=== PATIENT | male | born 1970 | race Two or more races ===

== ENCOUNTER 2019-02-28 00:47 | Emergency (ER) | payer OTHER ==
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
[2019-02-28] MEDS ORDERED: Acetaminophen/HYDROcodone 325-5 MG Tab PO ONE (01:25)
[2019-02-28] MEDS ORDERED: FLU Vacc QS2019-20(6MOS+)/PF 60 MCG/0.5 ML SYRINGE IM ONE (01:30)
--- NOTE | 2019-02-28 07:48 | CR ---
Left shoulder: Single Y scapular view was obtained of the left shoulder. Surgical anchors are seen within the left shoulder. This is from previous surgery. No dislocation is seen of the left glenohumeral joint. Scapula shows no discrete fracture or other abnormality. Impression: 1. Previous left shoulder surgery. Nothing acute is seen in Y scapular view. Diagnostic code #2 This report was dictated in [place] Standard Time
--- NOTE | 2019-02-28 08:44 | CR ---
Chest: Two views of the chest were obtained. Comparison: No prior chest imaging. Distal clavicle is slightly elevated in relation to the acromion process. This is noted on the left side. Previous surgery is noted within the left shoulder. Heart size and mediastinum are normal. Lungs are clear with no acute parenchymal change. No additional acute bony abnormality is seen. Impression: 1. Mild acromioclavicular separation. Uncertain if this is old or due to change from previous surgery. Please correlate if patient's symptoms help differentiate. 2. Prior left shoulder surgery with surgical anchors. 3. Nothing acute is otherwise seen on two-view chest x-ray. Diagnostic code #3 This report was dictated in [place] Standard Time
== END 2019-02-28 02:03 | disposition home or self-care (01) ==
LOC: JD.ED 00:47
DX: S40.012A Contusion of left shoulder, initial encounter (principal); V57.5XXA Driver of pick-up truck or van injured in collision with fixed or stationary object in traffic accident, initial encounter; Y92.410 Unspecified street and highway as the place of occurrence of the external cause
CPT/HCPCS: 71046; 73020; 90471; 90686; 99284; A9270; G0008